=== PATIENT | female | born 2000 | race Caucasian/White ===

== ENCOUNTER 2022-03-04 08:11 | Emergency (ER) | payer OTHER ==
[2022-03-04] MEDS ORDERED: Acetaminophen 500 MG TAB ONE (08:44)
[2022-03-04] MEDS ORDERED: Ketorolac Tromethamine 30 MG/ML VIAL ONE (08:44)
[2022-03-04] MEDS ORDERED: Metoclopramide HCl 10 MG/2 ML VIAL ONE (08:44)
[2022-03-04] MEDS ORDERED: diphenhydrAMINE 50 MG/ML VIAL ONE (08:44)
== END 2022-03-04 11:23 | disposition home or self-care (01) ==
LOC: ERS 08:11
DX: G43.909 Migraine, unspecified, not intractable, without status migrainosus (principal); I95.9 Hypotension, unspecified; I47.1 Supraventricular tachycardia; Z79.899 Other long term (current) drug therapy
CPT/HCPCS: 96365; 96375; J1200; J1885; J2765

== ENCOUNTER 2022-08-29 01:38 | Emergency (ER) | payer OTHER ==
[2022-08-29] MEDS ORDERED: Ketorolac Tromethamine 30 MG/ML VIAL ONE (02:31)
== END 2022-08-29 03:20 | disposition home or self-care (01) ==
LOC: ERS 01:38
DX: F44.5 Conversion disorder with seizures or convulsions (principal); G43.909 Migraine, unspecified, not intractable, without status migrainosus; I10 Essential (primary) hypertension
CPT/HCPCS: 93005; 96374; J1885